=== PATIENT | male | born 1965 | race African-American/Black ===

== ENCOUNTER 2018-01-18 20:31 | Emergency (ER) | payer OTHER ==
[~2018-01-18] VITALS: Ht 191.8 cm; Wt 135.0 kg
[~2018-01-18 20:31] MED LIST: Z.0.NO CURRENT MEDS
[2018-01-18 20:53] VITALS: BP 144/78; PULSE 78; RESP 21; TEMP 98.9; O2SAT 96
[2018-01-18 21:03] VITALS: BP 151/87; PULSE 76; RESP 21; TEMP 98.9
--- NOTE | 2018-01-18 22:10 | RADRPT ---
EXAM DATE/TIME: 01/18/2018 21:32 [place] COMPARISON: No previous studies available for comparison. INDICATIONS : Short of breath. MEDICAL HISTORY : None. SURGICAL HISTORY : None. ENCOUNTER: Initial ACUITY: 1 day PAIN SCORE: 3/10 LOCATION: Bilateral chest FINDINGS: PA and lateral views of the chest demonstrate the lungs to be symmetrically aerated without evidence of mass, infiltrate or effusion. The cardiomediastinal contours are unremarkable. Osseous structure s are intact. CONCLUSION: 1. No active disease. Mild scoliosis. Carlos Dewey MD on January 18, 2018 at 22:07 Board Certified Radiologist. This report was verified electronically.
--- NOTE | 2018-01-21 10:00 | PD ---
Physical Exam Date Seen by Provider: Jan 18, 2018 Time Seen by Provider: 22:19 Narrative 52-year-old male presents to the emergency department for evaluation of body aches, fevers for a few days. He states he has had intermittent cold symptoms over the past several months. He denies any chest pain. No abdominal pain. No vomiting or diarrhea. He states his main complaint is that he has been having hiccups for several months, since October. Current pain is 7/10. Moderate severity. Data Data Last Documented VS Vital Signs Date Time Temp Pulse Resp B/P (MAP) Pulse Ox O2 Delivery O2 Flow Rate FiO2 01/18/18 21:03 98.9 76 21 151/87 (108) 01/18/18 20:53 96 Orders Orders Chest, Pa & Lat (01/18/18 ) MDM Supervised Visit with ISA: No Narrative Course 52-year-old male presents to the emergency department for evaluation of intermittent cold symptoms and hiccups since October. Patient was initially seen in triage and workup was initiated. Patient left AMA before he could be moved to medical bed. Diagnosis Primary Impression: Left against medical advice Patient Instructions: General Instructions Departure Forms: Tests/Procedures Disposition: 07 AGAINST MEDICAL ADVICE Shruthi Jama Jan 21, 2018 10:00
== END 2018-01-18 22:19 | disposition left against medical advice (07) ==
LOC: NED 20:31
DX: R50.9 Fever, unspecified (principal)
CPT/HCPCS: 71046; 99283